=== PATIENT | female | born 1970 | race Two or more races ===

== ENCOUNTER 2022-11-21 07:00 | Inpatient (IN) | payer OTHER ==
[~2022-11-21] VITALS: Ht 165.1 cm; Wt 79.4 kg
== END 2022-11-27 12:52 | disposition home or self-care (01) | DRG 354 ==
LOC: ER 07:00 → SURG 21:05 → SEC-K 21:05 → O/R 22:09 → SURG 23:48
PROVIDERS: Surgery; ADMIT Internal Medicine; ATTEND Internal Medicine
PROC: BW21YZZ Computerized Tomography (CT Scan) of Abdomen and Pelvis using Other Contrast (ICD-10-PCS; 2022-11-21)
PROC: 0WQF0ZZ Repair Abdominal Wall, Open Approach (ICD-10-PCS; principal; 2022-11-21 21:00)
PROC: 3E0336Z Introduction of Nutritional Substance into Peripheral Vein, Percutaneous Approach (ICD-10-PCS; 2022-11-22)
PROC: 0D9670Z Drainage of Stomach with Drainage Device, Via Natural or Artificial Opening (ICD-10-PCS; 2022-11-22)
DX: K42.0 Umbilical hernia with obstruction, without gangrene (principal); K56.0 Paralytic ileus; K56.600 Partial intestinal obstruction, unspecified as to cause; E86.0 Dehydration; E87.6 Hypokalemia

== ENCOUNTER 2022-12-19 09:06 | Inpatient (IN) | payer OTHER ==
[~2022-12-19] VITALS: Ht 152.4 cm; Wt 81.6 kg
== END 2022-12-23 14:24 | disposition home or self-care (01) | DRG 389 ==
LOC: ER 09:06 → MEDJ 18:27
PROVIDERS: ADMIT Internal Medicine; ATTEND Internal Medicine
PROC: BW21ZZZ Computerized Tomography (CT Scan) of Abdomen and Pelvis (ICD-10-PCS; principal; 2022-12-19)
DX: K56.51 Intestinal adhesions [bands], with partial obstruction (principal); K42.0 Umbilical hernia with obstruction, without gangrene; K52.89 Other specified noninfective gastroenteritis and colitis